=== PATIENT | female | born 1990 | race Caucasian/White ===

== ENCOUNTER 2023-08-07 13:27 | Emergency (ER) | payer OTHER ==
[~2023-08-07] VITALS: Ht 167.6 cm; Wt 63.5 kg
[2023-08-07 13:47] VITALS: BP_SYST 132; PULSE 95; RESP 18; TEMP 98.2; O2SAT 98
[2023-08-07 14:23] LABS: HCG,QUAL RESULT NEGATIVE (NEGATIVE)
[2023-08-07] MEDS: KETOROLAC TROMETHAMINE 30 MG VIAL IM ONE (14:28)
[2023-08-07] MEDS ORDERED: TRAM50TA2 PO (15:48)
[2023-08-07] MEDS ORDERED: ACET-2634 PO (15:48)
[2023-08-07] MEDS ORDERED: IBUP-1969 PO (15:48)
[2023-08-07 15:56] LABS: BILIRUBIN,URINE NEGATIVE (NEGATIVE); CLARITY/URINE SL CLOUDY (CLEAR); COLOR,URINE YELLOW (YELLOW); GLUCOSE,URINE NEGATIVE (NEGATIVE); KETONES,URINE NEGATIVE (NEGATIVE); LEUKOCYTE ESTERASE ,URINE NEGATIVE (NEGATIVE); NITRITE, URINE NEGATIVE (NEGATIVE); PH,URINE 7.5 (5.0-8.0); PROTEIN URINE NEGATIVE (NEGATIVE); UROBILINOGEN,URINE 0.2 (0.2-1.0)
[2023-08-07 16:20] LABS: BLOOD, URINE TRACE (NEGATIVE)
[2023-08-07 16:23] LABS: BACTERIA,URINE MODERATE /HPF (None Seen); RBC,URINE 0-3 /HPF (0-3); WBC,URINE 0-3 /HPF (0-3)
[2023-08-07 16:25] LABS: MUCUS,URINE 2+ /LPF (None Seen); URINE AMORPHOUS PHOSPHATES 3+ /HPF (None Seen)
[2023-08-07 17:30] VITALS: BP_SYST 129; PULSE 90; RESP 18; TEMP 98.1; O2SAT 98
== END 2023-08-07 17:29 | disposition home or self-care (01) ==
LOC: SED 13:27
DX: M54.50 Low back pain, unspecified (principal); F32.9 Major depressive disorder, single episode, unspecified
CPT/HCPCS: 99284; 81000; 81001; 84703; 87086; 72100; 81025; 96372; 81015; J1885